=== PATIENT | female | born 1980 | race Caucasian/White ===

== ENCOUNTER 2016-04-23 14:46 | Observation (INO) ==
--- NOTE | 2016-04-23 16:55 | OB/GYN Progress Note ---
Date of Encounter: 04/23/16 Time of Encounter: 16:50 - Assessment and Plan (1) 33 weeks gestation of Current Visit: Yes Status: Acute (2) NST (non-stress test) reactive Current Visit: Yes Status: Acute (3) Advanced maternal age (AMA) in Current Visit: No Status: Acute (4) Acute cystitis during in third trimester Current Visit: Yes Status: Acute UA + nitrites, large leukocytes. Macrobid rx given. Discharge home with precautions. Subjective - Subjective Interval history: 35 year-old presenting at 33 weeks with c/o tightening and bruise on abdomen. She denies contractions, LOF, VB, or other bleeding or bruising. She does admit to urinary frequency and hesitancy. Good FM. She reports she first noticed a knot on her lower abdomen 2 days ago and now it appears to be bruised and is tender to touch. No other complaints. Antepartum ROS: movement normal, no loss of fluid, no vaginal bleeding, no contractions Objective - Exam FHR: category 1 FHR comments: NST 130BPM reactive Auscultation: bilateral: normal Abdomen: Present: soft, gravid, tenderness (bruise noted on LLQ and mons that is TTP, no tenderness elsewhere) Uterus: Present: normal. Absent: tenderness Cervical dilation: 1 Cervix effacement: thick station: high
[2016-04-23 17:03] LABS: Bilirubin,Urine Negative (Negative); Blood,Urine Negative (Negative); Clarity,Urine Cloudy (Clear); Color,Urine Yellow (Yellow); Glucose,Urine (UA) Normal (Normal); Ketones,Urine Negative (Negative); Leukocyte Esterase,Urine Large (Negative); Nitrite,Urine Positive (Negative); Protein,Urine 30 mg/dL (Neg-Trace); Specific Gravity,Urine 1.023 (1.010-1.025); Urobilinogen,Urine Normal (Normal)
[2016-04-23 17:06] LABS: Bacteria,Urine Moderate per hpf (None-Few); Squamous Epithelial Cell,Urine Many per lpf (None-Few); WBC,Urine TNTC per hpf (0-3)
[2016-04-23 17:27] LABS: Calcium Oxalate Crystals,Urine Present; RBC,Urine 0-3 per hpf (0-3)
[2016-04-23 17:28] LABS: Hyaline Casts,Urine None Seen per lpf (None-Few); Mucus,Urine Few (Few)
== END 2016-04-23 18:00 | disposition home or self-care (01) ==
LOC: 1NENULAB
PROVIDERS: ADMIT Obstetrics & Gynecology; ATTEND Obstetrics & Gynecology

== ENCOUNTER 2016-05-26 13:15 | Observation (INO) ==
[2016-05-26 13:55] LABS: Bilirubin,Urine Negative (Negative); Blood,Urine Large (Negative); Clarity,Urine Cloudy (Clear); Color,Urine Yellow (Yellow); Glucose,Urine (UA) Normal (Normal); Ketones,Urine Negative (Negative); Leukocyte Esterase,Urine Large (Negative); Nitrite,Urine Positive (Negative); Protein,Urine 30 mg/dL (Neg-Trace); Specific Gravity,Urine 1.015 (1.010-1.025); Urobilinogen,Urine Normal (Normal)
[2016-05-26 14:00] LABS: Bacteria,Urine Many per hpf (None-Few); Hyaline Casts,Urine None Seen per lpf (None-Few); Squamous Epithelial Cell,Urine Many per lpf (None-Few); WBC,Urine 50-100 per hpf (0-3)
[2016-05-26 14:08] LABS: RBC,Urine 50-100 per hpf (0-3)
--- NOTE | 2016-05-26 14:48 | OB/GYN Progress Note ---
Date of Encounter: 05/26/16 Time of Encounter: 14:46 - Assessment and Plan (1) 38 weeks gestation of Current Visit: Yes Status: Acute (2) Acute cystitis during in third trimester Current Visit: No Status: Acute UA positive nitrites and large leukocytes. No fever or chills. Rx for Keflex given and pt instructed to hydrate. Discharge home with precautions including to return immediately for fever and chills. (3) Advanced maternal age (AMA) in Current Visit: No Status: Acute (4) NST (non-stress test) reactive Current Visit: No Status: Acute Subjective - Subjective Interval history: 35 year-old presenting at 38 weeks with c/o back pain. She reports frequent pain in bilateral flank. No fever or chills. Good FM. No LOF. Antepartum ROS: movement normal, contractions (occassional), no loss of fluid, no vaginal bleeding Objective - Vital Signs Vital Signs: Intake and Output 05/25/16 05/26/16 05/26/16 23:59 07:59 15:59 Other: Weight 90.5 kg Patient Weight 05/26/16 23:59 Weight 90.5 kg - Exam FHR: category 1 FHR comments: NST reactive Auscultation: bilateral: normal Abdomen: Present: soft, gravid. Absent: tenderness Uterus: Present: normal. Absent: tenderness Cervical dilation: 2/50 - Labs Labs: Abnormal lab results Urine Clarity Cloudy (Clear) A 05/26/16 13:42 Urine Protein 30 mg/dL (Neg-Trace) H 05/26/16 13:42 Urine Blood Large (Negative) H 05/26/16 13:42 Urine Nitrite Positive (Negative) A 05/26/16 13:42 Ur Leukocyte Esterase Large (Negative) H 05/26/16 13:42 Urine Microscopic RBC 50-100 per hpf (0-3) H 05/26/16 13:42 Urine Microscopic WBC 50-100 per hpf (0-3) H 05/26/16 13:42 Ur Squamous Epith Cells Many per lpf (None-Few) H 05/26/16 13:42 Urine Bacteria Many per hpf (None-Few) H 05/26/16 13:42 Ur Culture Indicated? YES (NO) A 05/26/16 13:42
== END 2016-05-26 14:50 | disposition home or self-care (01) ==
LOC: 1NENULAB
PROVIDERS: ADMIT Obstetrics & Gynecology; ATTEND Obstetrics & Gynecology

== ENCOUNTER 2016-05-27 16:11 | Inpatient (IN) ==
[2016-05-27 12:40] LABS: Basophils % 0.2 %; Eosinophils # 0.1 K/mcL (0.0-0.6); Eosinophils % 0.5 %; Hematocrit 29.9 % (35.3-44.9); Hemoglobin 9.4 g/dL (11.5-15.4); Immature Granulocytes % 0.6 % (0-4); Lymphocytes # 1.5 K/mcL (0.6-4.6); Lymphocytes % 15.8 %; Mean Corpuscular HGB Conc 31.4 g/dL (31.6-35.5); Mean Corpuscular Volume 82.8 fL (83.0-100.0); Mean Platelet Volume 11.4 fL (9.4-12.4); Monocytes # 0.7 K/mcL (0.0-1.3); Monocytes % 7.8 %; Platelet Count 208 K/mcL (140-400); Red Blood Count 3.61 M/mcL (3.82-4.97); Red Cell Distribution Width 14.6 % (11.5-14.5); Segmented Neutrophils % 75.1 %
[2016-05-27 12:53] LABS: BUN/Creatinine Ratio 9 (6-26); Blood Urea Nitrogen 6 mg/dL (7-20); Calcium 8.5 mg/dL (8.6-10.8); Carbon Dioxide 18 mEq/L (19-29); Chloride 109 mEq/L (98-109); Glucose 104 mg/dL (70-99); Osmolality,Calculated 284 (280-300); Potassium 3.3 mEq/L (3.5-4.5); Sodium 138 mEq/L (136-145); eGFR For African Americans > 60 (> 60); eGFR For Non-African Americans > 60 (> 60)
--- NOTE | 2016-05-27 13:57 | OB/GYN Progress Note ---
Date of Encounter: 05/27/16 Time of Encounter: 13:55 - Assessment and Plan (1) 38 weeks gestation of Current Visit: No Status: Acute (2) Acute cystitis during in third trimester Current Visit: No Status: Acute Will give IV Ancef. Anticipate discharge home. (3) Advanced maternal age (AMA) in Current Visit: No Status: Acute (4) NST (non-stress test) reactive Current Visit: No Status: Acute Subjective - Subjective Interval history: Pt presented yesterday with c/o back pain. She was diagnosed with UTI and Keflex started. Today she reports continued back pain despite antibiotics. She states the pain is 8/10 and constant in her left lower back. She denies fever, chills, contractions, LOF, VB or other complaints. Good FM. Antepartum ROS: movement normal, no loss of fluid, no vaginal bleeding, no contractions Objective - Vital Signs Vital Signs: Intake and Output 05/26/16 05/27/16 05/27/16 23:59 07:59 15:59 Other: Weight 90.6 kg Patient Weight 05/27/16 23:59 Weight 90.6 kg - Exam FHR: category 1 FHR comments: NST reactive Auscultation: bilateral: normal Abdomen: Present: soft, gravid. Absent: tenderness Uterus: Present: normal. Absent: tenderness Cervical dilation: 2 Cervix effacement: 70 station: -2 - Labs Labs: Abnormal lab results RBC 3.61 M/mcL (3.82-4.97) L 05/27/16 12:10 Hgb 9.4 g/dL (11.5-15.4) L 05/27/16 12:10 Hct 29.9 % (35.3-44.9) L 05/27/16 12:10 MCV 82.8 fL (83.0-100.0) L 05/27/16 12:10 MCH 26.0 pg (28.0-33.3) L 05/27/16 12:10 MCHC 31.4 g/dL (31.6-35.5) L 05/27/16 12:10 RDW 14.6 % (11.5-14.5) H 05/27/16 12:10 Potassium 3.3 mEq/L (3.5-4.5) L 05/27/16 12:10 Carbon Dioxide 18 mEq/L (19-29) L 05/27/16 12:10 BUN 6 mg/dL (7-20) L 05/27/16 12:10 Glucose 104 mg/dL (70-99) H 05/27/16 12:10 Calcium 8.5 mg/dL (8.6-10.8) L 05/27/16 12:10
--- NOTE | 2016-05-27 16:07 | OB/GYN History & Physical ---
Date of Encounter: 05/27/16 Time of Encounter: 16:04 Assessment and Plan (1) 38 weeks gestation of Current visit: No Status: Acute (2) Acute cystitis during in third trimester Current visit: No Status: Acute (3) Advanced maternal age (AMA) in Current visit: No Status: Acute (4) tachycardia affecting management of mother Current visit: Yes Status: Acute Tracing reviewed by Dr. Branch who recommends admission and delivery. History of Present Illness Chief complaint: back pain HPI: Ms. Gaston is a 35 year old female presenting with left lower back pain. She was diagnosed yesterday with UTI and was started on Keflex. The pain worsened today so she returned to triage. While in triage she received ancef. After an initial reactive NST the fetus became tachycardic to 190BPM. The patient remained afebrile. She denies complaints other than constant achy pain in her left lower back. Past Med Surg Social Fam HX - Past Medical History Medical history: asthma, kidney stones Psychiatric history: no psych history - Past Surgical History Surgical History: other - Social History Smoking Status: Never smoker Smokeless Tobacco Status: No Alcohol use: none Drug use: none - Family History Mother Living Status: Still Living Hx Family Cardiac Disorders: Yes (chronic htn) Obstetrical History - Pregnancies : 7 Para: 6 Livin Medications and Allergies Pnv95/Ferrous Fumarate/FA [ Caplet] 1 tab PO DAILY 12/08/15 [History] Ondansetron [Zofran] 4 mg PO Q8HR #30 tablet 12/10/15 [Rx] Cephalexin [Keflex] 500 mg PO TID #21 capsule 05/26/16 [Rx] Allergies Amoxicillin [From Augmentin] Allergy (Verified 12/08/15 14:49) Rash clavulanic acid [From Augmentin] Allergy (Verified 12/08/15 14:49) Rash Review of System OB All systems PM: reviewed and no additional remarkable complaints except as stated Exam - Constitutional Constitutional: well developed, well nourished, moderate distress - HEENT HEENT: Mucus Membranes Moist - Lungs Respiratory exam: CTAB - Cardiovascular Cardiovascular exam: RRR, +S1, +S2 - Abdomen Abdomen: Present: gravid, non tender - Extremities Extremities exam: normal inspection - Vulva Vulva: bilateral: normal - Vagina Vagina: Present: normal moisture - Cervix Dilation: 2 Effacement: 70 Station: -2 - Uterus Uterus exam: Present: normal size - Anus/Rectum Anus/Rectum: Present: normal perianal skin Results Result Diagrams: 05/27/16 12:10 05/27/16 12:10 Abnormal lab results RBC 3.61 M/mcL (3.82-4.97) L 05/27/16 12:10 Hgb 9.4 g/dL (11.5-15.4) L 05/27/16 12:10 Hct 29.9 % (35.3-44.9) L 05/27/16 12:10 MCV 82.8 fL (83.0-100.0) L 05/27/16 12:10 MCH 26.0 pg (28.0-33.3) L 05/27/16 12:10 MCHC 31.4 g/dL (31.6-35.5) L 05/27/16 12:10 RDW 14.6 % (11.5-14.5) H 05/27/16 12:10 Potassium 3.3 mEq/L (3.5-4.5) L 05/27/16 12:10 Carbon Dioxide 18 mEq/L (19-29) L 05/27/16 12:10 BUN 6 mg/dL (7-20) L 05/27/16 12:10 Glucose 104 mg/dL (70-99) H 05/27/16 12:10 Calcium 8.5 mg/dL (8.6-10.8) L 05/27/16 12:10 All other labs normal. - VTE Reasons for not Prescribing Prophylaxis: Treatment not Indicated - Low risk for VTE
[~2016-05-27 16:11] MED LIST: *HR* HYDROmorphone (PF) 1 MG/ML SYRINGE IVP ONE; *HR* HYDROmorphone (PF) 1 MG/ML SYRINGE ONE; CeFAZolin Pre 2,000 MG/100 ML 2,000 MG/100 ML BAG IVPB ONE; Famotidine 20 MG/2 ML VIAL IVP PRN; Naloxone 0.4 MG/ML INJ IVP PRN; Ondansetron 4 MG/2 ML VIAL IVP PRN; Ringers Solution, Lactated 1,000 ML IVC ONE; Ringers Solution, Lactated 1,000 ML ONE
[2016-05-27] MEDS ORDERED: Ringers Solution, Lactated 1,000 ML IVC SCH (16:15)
[2016-05-27] MEDS ORDERED: miSOPROStol 100 MCG TABLET PO STA (17:26)
--- NOTE | 2016-05-27 17:41 | OB/GYN Progress Note ---
Date of Encounter: 05/27/16 Time of Encounter: 17:39 - Assessment and Plan (1) tachycardia affecting management of mother Current Visit: Yes Status: Acute Patient admitted for for IOL (2) 38 weeks gestation of Current Visit: No Status: Acute admit for labor (3) Advanced maternal age (AMA) in Current Visit: No Status: Acute Subjective - Subjective Principal diagnosis: tachycardia Interval history: Dr. Branch at nurses station reviewing FHR tracing and reports recommendation of starting IOL due to tachycardia. Will start PO cytotec and will start VAncomycin for GBS protocol. Antepartum ROS: movement normal, no loss of fluid, no vaginal bleeding, no contractions Objective - Vital Signs Vital Signs: Intake and Output 05/27/16 05/27/16 05/27/16 07:59 15:59 23:59 Other: Weight 90.6 kg Patient Weight 05/27/16 23:59 Weight 90.6 kg - Exam FHR comments: FHR 190 bpm moderate variability Abdomen: Present: normal appearance, soft, gravid Uterus: Present: normal, firm - Labs Labs: Abnormal lab results RBC 3.61 M/mcL (3.82-4.97) L 05/27/16 12:10 Hgb 9.4 g/dL (11.5-15.4) L 05/27/16 12:10 Hct 29.9 % (35.3-44.9) L 05/27/16 12:10 MCV 82.8 fL (83.0-100.0) L 05/27/16 12:10 MCH 26.0 pg (28.0-33.3) L 05/27/16 12:10 MCHC 31.4 g/dL (31.6-35.5) L 05/27/16 12:10 RDW 14.6 % (11.5-14.5) H 05/27/16 12:10 Potassium 3.3 mEq/L (3.5-4.5) L 05/27/16 12:10 Carbon Dioxide 18 mEq/L (19-29) L 05/27/16 12:10 BUN 6 mg/dL (7-20) L 05/27/16 12:10 Glucose 104 mg/dL (70-99) H 05/27/16 12:10 Calcium 8.5 mg/dL (8.6-10.8) L 05/27/16 12:10
[2016-05-27] MEDS ORDERED: Acetaminophen 325 MG TABLET PO PRN ×2 (18:00→23:45)
[2016-05-27] MEDS ORDERED: Vancomycin 1,000 MG in D5% in Water 250 ML IVPB SCH (18:00)
--- NOTE | 2016-05-27 18:00 | Anesthesia Evaluation PreOp ---
Date of Encounter: 05/27/16 Time of Encounter: 17:57 - Past History Planned Operation: labor epidural Cardiac History: Denies any Significant Hx Pulmonary History: Asthma (uses inhaler , well controlled.) COLORIST DYER History: Denies Any Significant HX Other Medical History: Renal (kidney stones), Thyroid (hypothyroidism) Anesthesia History: Past Anesthesia (ear surgery, bone reconstuction. No FHAP.) : Yes Alcohol Use: none Drug use: none Medications and Allergies Pnv95/Ferrous Fumarate/FA [ Caplet] 1 tab PO DAILY 12/08/15 [History] Ondansetron [Zofran] 4 mg PO Q8HR #30 tablet 12/10/15 [Rx] Cephalexin [Keflex] 500 mg PO TID #21 capsule 05/26/16 [Rx] Allergies Amoxicillin [From Augmentin] Allergy (Verified 12/08/15 14:49) Rash clavulanic acid [From Augmentin] Allergy (Verified 12/08/15 14:49) Rash - Meds/Allergy Pre-op Review Medications Reviewed: Yes Allergies Reviewed: Yes Beta Blockers on Current Med List: No Anesthesia Results - Labs 05/27/16 12:10 05/27/16 12:10 Anesthesia Exam 137/60, 139, 14, 97% Height: 5'2" Weight: 91 kg NPO (# of Hours): 10 Pain Scale: 9 (kidney stone related) Pain Scale Used: Numeric (1 - 10) - HEENT Pupil (Motor): Pupils equal, EOMI Mallampati: III Oral Opening: Less than or equal to 3 - COLORIST DYER LOC: Oriented COLORIST DYER Motor: Normal RUE, Normal LUE, Normal RLE, Normal LLE, Normal Face COLORIST DYER Sensory: Normal: RUE, LUE, RLE, LLE, Face - Cardiac Rhythm: Regular Murmur: None - Pulmonary Breath Sounds: bilateral Clear Respiratory Effort: Symmetrical Anesthesia Assess/Plan ASA Score: 2 Modified Elwood Scale for Level of Consciousness: Cooperative, oriented, and tranquil Anesthetic Plan: Regional Monitoring Plan: Standard Monitors
[2016-05-27] MEDS ORDERED: *HR* FentaNYL (PF) 100 MCG/2 ML VIAL EP ONE (18:04)
[2016-05-27] MEDS ORDERED: Bupivacaine-MPF 0.25% 10 ML VIAL EP ONE (18:04)
[2016-05-27] MEDS ORDERED: Epidural Premix (fent/bupiv) 110 ML EP SCH (18:15)
[2016-05-27] MEDS ORDERED: Vancomycin 1,250 MG in D5% in Water 250 ML IVPB SCH (19:00)
[2016-05-27] MEDS ORDERED: *HR* FentaNYL (PF) 100 MCG/2 ML VIAL ONE (19:07)
[2016-05-27] MEDS ORDERED: Bupivacaine-MPF 0.25% 10 ML VIAL ONE (19:07)
[2016-05-27] MEDS ORDERED: Epidural Premix (fent/bupiv) 110 ML EP ONE (19:08)
--- NOTE | 2016-05-27 20:12 | OB Labor Progress Note ---
Date of Encounter: 05/27/16 Time of Encounter: 20:10 Labor Progress Note - Subjective Subjective: Patient comfortable with epidural in place. Discussed POC with patient. patient denies any questions or concerns. - Cervix Cervix: 4/80/-1 - Heart Tones Heart Tones: 180 bpm moderate variability +15x15 accels no decels noted. - [place]: 1.5-2 min apart - Interventions Interventions: SVE, AROM moderate amount clear fluid. IUPC placed without difficulty. Patient tolerated well. - Plan Plan: Continue labor management.
--- NOTE | 2016-05-27 20:20 | Anesthesia Procedures ---
Date of Encounter: 05/27/16 Time of Encounter: 19:32 Procedures: Anesthesia - Epidural/Spinal Patient ID/Chart reviewed: Yes Patient examined: Yes OB Eval: Gestational age: 38 OB Eval: : 7 OB Eval: Hx Para: 6 OB Eval: Dilated at (cm): 2 OB Eval: Contractions: Non-stressed pattern Consent Obtained: Yes Supplemental Oxygen: None/Room Air Site Prep: Aseptic Technique, Sterile prep and drape, Povidone-Iodine 1% Patient position: upright Local Anesthetic: Lidocaine 1% Amount of Local Anesthetic used: 3 Touhy Needle Gauge: 19 Touhy Needle Depth (cm): 5 Catheter Depth at Skin (cm): 18 Test Dose (1.5% Lido + Epi): Volume given (mls): 3 Test Dose Result: Negative Loading Dose: 0.25% Marcaine (mls): 8 Loading Dose: Fentanyl (mcg): 100 Loading Dose Administered: Thru Catheter Infusion Med: 0.125% Bupivacaine w/ 2 mcg/ml Fentanyl Infusion Rate (mls/hr): [address]: Tegaderm, Tape Interspace Used: L3-L4 Loss of Resistance (SHIMA): Yes Blood: No CSF: No Paresthesia: No Vitals + FHT's: 3 Vital Signs Time 1934 1939 1944 1949 1954 1999 BP 131/75 127/60 128/67 125/63 122/58 120/66 Pulse 123 117 116 125 112 121 FHTs 180 190 190 190 190 180
[2016-05-27] MEDS ORDERED: Oxytocin 20 units/ LR 1000 mL 20 UNIT/1,000 ML BAG IVC ONE ×3 (20:45→23:45)
[2016-05-27] MEDS ORDERED: ceFAZolin 1,000 MG in D5% in Water (Mini-Bag+) 100 ML IVPB SCH (21:00)
--- NOTE | 2016-05-27 22:09 | OB/GYN Procedure Note ---
Delivery - Delivery Date: 05/27/16 Provider: Khushbu Robin Intrapartum events: other(please specify) ( tachycardia) Delivery induction: AROM, misoprostol Delivery monitor: external FHT, external uterine, internal FHT, internal uterine Anesthesia: epidural Estimated Blood Loss: 200 - (s) A Delivery Date: 05/27/16 Delivery Time: 21:39 Presentation: vertex Position: ANNA Route of delivery: Gender: Female Viability: Viable Pounds: 7 Ounces: 3 Weight Gram: 3260 kg at 1 minute: 8 at 5 mins: 9 Shoulder Dystocia: not encountered Specimens collected: cord blood Placenta: spontaneous Cord: 3 umbilical vessels - Repair Episiotomy: none Laceration Description: None - Complications Delivery complications: none - Disposition Mom disposition: stable in LDR disposition: stable in LDR - Comments Comments: Called to LDR patient feeling pressure. Patient was a rim. Patient placed in stirrups and prepped for delivery. Patient was then complete. Patient pushed with contractions. Spontaneous delivery of female . Infant delivered ANNA with posterior arm. was placed on maternal abdomen. Cord was clamped and cut after pulsation ceased. No laceration were noted. Infant was placed skin to skin. Placenta delivered spontaneously. No nuchal cord, shoulder dystocia or meconium was encountered. Nursery at bedside for delivery. Apgars 8 at 1 minute and 9 at 5 minutes. Both mother and infant are stable in recovery.
[2016-05-27] MEDS ORDERED: Lanolin 7 G OINT...G. TP PRN (23:45)
[2016-05-27] MEDS ORDERED: Oxytocin 20 units/ LR 1000 mL 20 UNIT/1,000 ML BAG IV SCH (23:45)
[2016-05-27] MEDS ORDERED: *HR* HYDROcodone/Acet 5/325 mg TABLET PO PRN (23:45)
[2016-05-28] MEDS: Ibuprofen 600 MG TABLET PO PRN ×3 (02:03→20:21)
[2016-05-28 05:01] LABS: Hemoglobin 8.5 g/dL (11.5-15.4); Mean Corpuscular HGB Conc 31.5 g/dL (31.6-35.5); Mean Corpuscular Hemoglobin 26.3 pg (28.0-33.3); Mean Corpuscular Volume 83.6 fL (83.0-100.0); Mean Platelet Volume 11.5 fL (9.4-12.4); Platelet Count 139 K/mcL (140-400); Red Blood Count 3.23 M/mcL (3.82-4.97); Red Cell Distribution Width 14.9 % (11.5-14.5)
[2016-05-28 06:26] LABS: Lymphocytes # 0.4 K/mcL (0.6-4.6); Monocytes # 0.7 K/mcL (0.0-1.3); Neutrophils # 17.5 K/mcL (1.6-8.9); Platelet Estimate Normal (Normal)
[2016-05-28] MEDS ORDERED: Vancomycin 1,000 MG in D5% in Water 250 ML IVPB SCH (07:00)
[2016-05-28] MEDS: Prenatal Vit/FA 1 EACH TABLET PO SCH (08:27)
--- NOTE | 2016-05-28 08:51 | OB/GYN Progress Note ---
Date of Encounter: 05/28/16 Time of Encounter: 08:49 - Assessment and Plan (1) Acute cystitis during in third trimester Current Visit: No Status: Acute Plan per Khushbu Robin CNM and Dr. Alvarenga is to continue Vancomycin for 24 hours. (2) (normal spontaneous vaginal delivery) Current Visit: Yes Status: Acute Pt meeting milestones. Subjective - Subjective Interval history: Pt reports minimal back pain today. She states she is feeling well. Patient reports: appetite normal, voiding normally, pain well controlled, ambulating normally : doing well Objective - Latest Vital Signs Latest vital signs: Vital Signs Temp Pulse Resp BP Pulse Ox 05/28/16 04:25 98.1 F 87 16 104/59 98 05/28/16 02:00 98.0 F 94 14 117/72 99 05/28/16 01:00 98.1 F 98 16 109/69 97 05/28/16 00:00 97.9 F 92 20 118/71 97 Intake and Output 05/27/16 05/28/16 05/28/16 23:59 07:59 15:59 Intake Total 240 / 240 Output Total 1000 / 1000 Balance -760 / -760 Intake: Oral 240 / 240 Output: Urine 1000 / 1000 Other: Stool Characteristics Normal for Patient - Exam Lungs: bilateral: normal Chest: Normal S1, Normal S2 Extremities: Present: normal, edema (mild, bilaterally) Abdomen: Present: soft. Absent: tenderness Uterus: Present: firm. Absent: tenderness Uterus Position: At Umbilicus - Labs Labs: Laboratory Results - last 24 hr 05/27/16 05/27/16 05/28/16 12:10 12:10 04:23 WBC 9.3 18.6 H D RBC 3.61 L 3.23 L Hgb 9.4 L 8.5 L Hct 29.9 L 27.0 L MCV 82.8 L 83.6 MCH 26.0 L 26.3 L MCHC 31.4 L 31.5 L RDW 14.6 H 14.9 H Plt Count 208 139 L MPV 11.4 11.5 Immature Gran % 0.6 Seg Neutrophils % 75.1 82.0 Band Neutrophils % 12.0 H Lymphocytes % 15.8 2.0 Monocytes % 7.8 4.0 Eosinophils % 0.5 Basophils % 0.2 Neutrophils # 7.0 17.5 H Lymphocytes # 1.5 0.4 L Monocytes # 0.7 0.7 Eosinophils # 0.1 Basophils # 0.0 Platelet Estimate Normal Sodium 138 Potassium 3.3 L Chloride 109 Carbon Dioxide 18 L BUN 6 L Creatinine 0.66 Est GFR ( Amer) > 60 Est GFR (Non-Af Amer) > 60 BUN/Creatinine Ratio 9 Glucose 104 H Calculated Osmolality 284 Calcium 8.5 L
[2016-05-28] MEDS: cephALEXin 500 MG CAPSULE PO SCH ×3 (13:00→20:21)
[2016-05-29 08:18] VITALS: BP 122/85
--- NOTE | 2016-05-29 09:15 | Discharge Summary ---
Date of Encounter: 05/29/16 Time of Encounter: 09:12 - Discharge Diagnosis (1) Acute cystitis during in third trimester Priority: Secondary Status: Acute Comments: Will continue Keflex at home to complete total of 7 days. (2) (normal spontaneous vaginal delivery) Priority: Primary Status: Acute Comments: Pt meeting milestones. - Discharge Medications Prescriptions: Ibuprofen [Motrin] 600 mg PO Q6HR PRN #60 tablet PRN Reason: Cramping Docusate [Colace] 100 mg PO BID #60 capsule Ferrous Sulfate 325 mg PO DAILY #30 tablet Home Medications: Pnv95/Ferrous Fumarate/FA [ Caplet] 1 tab PO DAILY 12/08/15 [History] Cephalexin [Keflex] 500 mg PO TID #21 capsule 05/26/16 [Rx] Breast Pump [BREAST PUMP] 1 each .ROUTE AD #1 each 05/29/16 [Rx] Docusate [Colace] 100 mg PO BID #60 capsule 05/29/16 [Rx] Ferrous Sulfate 325 mg PO DAILY #30 tablet 05/29/16 [Rx] Ibuprofen [Motrin] 600 mg PO Q6HR PRN #60 tablet 05/29/16 [Rx] Lanolin [Lansinoh] 1 appl TP TID PRN #0 oint...g. 05/29/16 [Rx] Allergies/Adverse Reactions: Allergies Amoxicillin [From Augmentin] Allergy (Verified 12/08/15 14:49) Rash clavulanic acid [From Augmentin] Allergy (Verified 12/08/15 14:49) Rash Data Procedures and tests throughout hospitalization: Laboratory Tests 05/27/16 05/27/16 05/28/16 12:10 12:10 04:23 WBC 9.3 18.6 H D RBC 3.61 L 3.23 L Hgb 9.4 L 8.5 L Hct 29.9 L 27.0 L MCV 82.8 L 83.6 MCH 26.0 L 26.3 L MCHC 31.4 L 31.5 L RDW 14.6 H 14.9 H Plt Count 208 139 L MPV 11.4 11.5 Immature Gran % 0.6 Seg Neutrophils % 75.1 82.0 Band Neutrophils % 12.0 H Lymphocytes % 15.8 2.0 Monocytes % 7.8 4.0 Eosinophils % 0.5 Basophils % 0.2 Neutrophils # 7.0 17.5 H Lymphocytes # 1.5 0.4 L Monocytes # 0.7 0.7 Eosinophils # 0.1 Basophils # 0.0 Platelet Estimate Normal Sodium 138 Potassium 3.3 L Chloride 109 Carbon Dioxide 18 L BUN 6 L Creatinine 0.66 Est GFR ( Amer) > 60 Est GFR (Non-Af Amer) > 60 BUN/Creatinine Ratio 9 Glucose 104 H Calculated Osmolality 284 Calcium 8.5 L - Impressions ITS Impressions Retroperitoneum Ultrasound 05/27/16 15:26 IMPRESSION: There is moderate left hydronephrosis. No right hydronephrosis. D/ / 05/27/2016 17:24:27 Mike Whiteside MD / bcarter Interpreting Provider: Mike Whiteside MD Date of admission: 05/27/16 16:11 Primary care physician: Belem Zacarias, Consults: 05/27/16 23:45 Consult to Land Inspector [CONS] Routine Comment: Vaginal delivery, consult needed Discharging clinician: Rosaura Lou Anticipated date of discharge: 05/29/16 - Patient Status Disposition: Home, Self-Care Condition: Good Functional capacity at discharge: independent ambulation Overall status at discharge: patient is progressing back to baseline - Discharge Instructions Follow Up With: Belem Zacarias MD [Primary Care Provider] - - Diet and Activity Activity: increase activity as tolerated Diet: advance to your usual diet Hospital Course Reason for admission: induction of labor Delivery: Episiotomy: none Laceration: none Other procedures: none complications: none Discharge diagnosis: IUP at term delivered baby: female Hospital course: - Delivery Date: 05/27/16 Provider: Khushbu Robin Intrapartum events: other(please specify) ( tachycardia) Delivery induction: AROM, misoprostol Delivery monitor: external FHT, external uterine, internal FHT, internal uterine Anesthesia: epidural Estimated Blood Loss: 200 - (s) Infant A Infant Delivery Date: 05/27/16 Infant Delivery Time: 21:39 Presentation: vertex Position: ANNA Route of delivery: Gender: Female Viability: Viable Pounds: 7 Ounces: 3 Weight Gram: 3260 kg at 1 minute: 8 at 5 mins: 9 Shoulder Dystocia: not encountered Specimens collected: cord blood Placenta: spontaneous Cord: 3 umbilical vessels - Repair Episiotomy: none Laceration Description: None - Complications Delivery complications: none - Disposition Mom disposition: home PPD#2 disposition: home with mother, Time Attestation: Total time spent providing and/or coordinating discharge services: Time Spent: Less than 30 minutes Exam - Constitutional Vitals: Temp Pulse Resp BP Pulse Ox 97.4 F L 94 16 122/85 95 05/29/16 08:17 05/29/16 08:17 05/29/16 08:17 05/29/16 08:17 05/29/16 08:17 General appearance IM: A&O X 3, pleasant, no acute distress - Respiratory Respiratory exam: Present: CTAB - Cardiovascular Cardiovascular exam IM: Present: RRR, +S1, +S2 - GI/Abdominal GI/Abdominal exam IM: soft, no peritoneal signs - Rectal Rectal exam: deferred - External exam: normal external exam Uterine Tone: Firm Uterus Position: 2 Fingers Below Umbilicus - Extremities Exam Extremities exam IM: Present: pedal edema (mild edema bilaterally) - Neurological Exam Neurological exam: normal gait, oriented X3 - Psychiatric Additional comments: reports good mood
[2016-05-29] MEDS: Prenatal Vit/FA 1 EACH TABLET PO SCH (09:16)
[2016-05-29] MEDS: cephALEXin 500 MG CAPSULE PO SCH (09:16)
[2016-05-29] MEDS: Ibuprofen 600 MG TABLET PO PRN (09:21)
[2016-05-29] MEDS ORDERED: Aminoglycoside Consult 1 EACH MC ONE (13:09)
== END 2016-05-29 13:10 | disposition home or self-care (01) | DRG 560 ==
LOC: 1NENULAB → 1NENUOBS 05-28 01:37
PROVIDERS: ADMIT Obstetrics & Gynecology; ATTEND Obstetrics & Gynecology